=== PATIENT | male | born 1990 | race Caucasian/White ===

== ENCOUNTER 2019-09-17 13:59 | Emergency (ER) | payer SELFPAY ==
[2019-09-17] MEDS ORDERED: Haloperidol Lactate 5 MG/ML SDV ONE (14:23)
[2019-09-17] MEDS ORDERED: LORazepam 2 MG/ML SDV ONE (14:24)
[2019-09-17] MEDS ORDERED: LORazepam 2 MG/ML SDV IVPUSH ONE (14:27)
[2019-09-17] MEDS ORDERED: Haloperidol Lactate 5 MG/ML SDV IM ONE ×2 (14:27→15:03)
[2019-09-17] MEDS ORDERED: diphenhydrAMINE 50 MG/ML SDV ONE (14:30)
--- NOTE | 2019-09-17 14:35 | EDM.PDOC ---
ED HPI GENERAL MEDICAL PROBLEM - General Chief Complaint: Drug or Alcohol Abuse Stated Complaint: MEDICAL CLEARANCE Time Seen by Provider: 09/17/19 14:06 Source of Information: Reports: Patient, Police History Limitations: Reports: No Limitations, Intoxication - History of Present Illness INITIAL COMMENTS - FREE TEXT/NARRATIVE: HISTORY AND PHYSICAL: History of present illness: Patient is a 29-year-old male who presents to the ED today with law enforcement for concern of suicidal ideation with plan and intoxication. While enforcement states that they were called by patient's mother was concerned for his safety. Mother told law enforcement that patient had sent a picture of a knife stating he was going to kill himself. Law enforcement state that upon arrival to the scene, patient had been drinking heavily and also expressed wanting to kill himself. In the ED today, patient does appear intoxicated and patient does state he wants to kill himself but is not coherently able to state a plan. Patient does allude to prior attempts in the past but does not clearly state what he had done in the past or how remotely. Patient denies any other symptoms or concerns. Review of systems: As per history of present illness and below otherwise all systems reviewed and negative. Past medical history: As per history of present illness and as reviewed below otherwise noncontributory. Surgical history: As per history of present illness and as reviewed below otherwise noncontributory. Social history: See social history for further information Family history: As per history of present illness and as reviewed below otherwise noncontributory. Physical exam: General: Patient is alert, oriented, and in no acute distress. Patient sitting comfortably on exam table. HEENT: Atraumatic, normocephalic, pupils equal and reactive bilaterally, negative for conjunctival pallor or scleral icterus, mucous membranes moist, TMs normal bilaterally, throat clear, neck supple, nontender, trachea midline. No drooling or trismus noted. No meningeal signs. No hot potato voice noted. Lungs: Clear to auscultation, breath sounds equal bilaterally, chest nontender. Heart: S1S2, regular rate and rhythm without overt murmur Abdomen: Soft, nondistended, nontender. Negative for masses or hepatosplenomegaly. Negative for costovertebral tenderness. Pelvis: Stable nontender. Genitourinary: Deferred. Rectal: Deferred. Skin: Intact, warm, dry. No lesions or rashes noted. Extremities: Atraumatic, negative for cords or calf pain. Neurovascular unremarkable. Neuro: Awake, alert, oriented. Cranial nerves II through XII unremarkable. Cerebellum unremarkable. Motor and sensory unremarkable throughout. Exam nonfocal. Notes: Dr. Jones directly involved in patient care Patient is aggressive and combative in the ED and does states that he wants to kill himself. He does settle down with therapeutics given today. Dr. Hudson, [facility] in [place], consulted on patient and excepting of transfer via EMS with police escort. Diagnostics: CBC, CMP, UA, EKG, TSH, magnesium, urine drug screen, salicylate, acetaminophen and ethanol Therapeutics: D51/2NS, Haldol, Ativan, Benadryl Impression: Suicidal ideation Alcohol Intoxication Hypoglycemia Plan: 1. Transfer to [facility] in [place] to Dr. Hudson. EMS with police escort. Definitive disposition and diagnosis as appropriate pending reevaluation and review of above. - Related Data Allergies Allergy/AdvReac Type Severity Reaction Status Date / Time amoxicillin Allergy Other Verified 09/17/19 14:12 Penicillins Allergy Other Verified 09/17/19 14:12 Home Meds: Home Meds . [No Known Home Meds] 09/17/19 [History] Past Medical History Psychiatric History: Reports: Bipolar Social & Family History - Family History Family Medical History: Noncontributory - Tobacco Use Smoking Status *Q: Current Every Day Smoker Years of Tobacco use: 10 Packs/Tins Daily: 1 - Recreational Drug Use Recreational Drug Use: No ED ROS GENERAL - Review of Systems Review Of Systems: ROS reveals no pertinent complaints other than HPI. ED EXAM, GENERAL - Physical Exam Exam: See Below (See dictation) Course - Vital Signs Last Recorded V/S: Last Vital Signs Temp 97.1 F 09/17/19 14:10 Pulse 74 09/17/19 15:12 Resp 18 09/17/19 15:12 BP 129/85 09/17/19 15:12 Pulse Ox 97 09/17/19 15:12 - Orders/Labs/Meds Orders: Active Orders 24 hr Category Date Time Status Blood Glucose Check, Bedside [RC] ONETIME Care 09/17/19 14:06 Active EKG Documentation Completion [RC] STAT Care 09/17/19 14:17 Active Dextrose 5%-0.45% NaCl [Dextrose 5%-1/2 NS] 1,000 ml Med 09/17/19 15:15 Active IV ASDIRECTED Medication Orders Dextrose/Sodium Chloride (Dextrose 5%-1/2 Ns) 1,000 mls @ 125 mls/hr IV ASDIRECTED WILLIAM Last Admin: 09/17/19 15:21 Dose: 125 mls/hr Labs: Laboratory Tests 09/17/19 09/17/19 09/17/19 Range/Units 14:35 14:35 14:45 WBC 9.26 (4.0-11.0) K/uL RBC 5.10 (4.50-5.90) M/uL Hgb 16.0 (13.0-17.0) g/dL Hct 46.1 (38.0-50.0) % MCV 90.4 (80.0-98.0) fL MCH 31.4 (27.0-32.0) pg MCHC 34.7 (31.0-37.0) g/dL RDW Std Deviation 44.4 (28.0-62.0) fl RDW Coeff of Valeria 14 (11.0-15.0) % Plt Count 208 (150-400) K/uL MPV 9.90 (7.40-12.00) fL Neut % (Auto) 63.6 (48.0-80.0) % Lymph % (Auto) 24.8 (16.0-40.0) % [place] % (Auto) 11.0 (0.0-15.0) % Eos % (Auto) 0.4 (0.0-7.0) % Baso % (Auto) 0.2 (0.0-1.5) % Neut # (Auto) 5.9 H (1.4-5.7) K/uL Lymph # (Auto) 2.3 (0.6-2.4) K/uL [place] # (Auto) 1.0 H (0.0-0.8) K/uL Eos # (Auto) 0.0 (0.0-0.7) K/uL Baso # (Auto) 0.0 (0.0-0.1) K/uL Nucleated RBC % 0.0 /100WBC Nucleated RBCs # 0 K/uL Sodium (136-148) mmol/L Potassium (3.5-5.1) mmol/L Chloride (98-107) mmol/L Carbon Dioxide (21.0-32.0) mmol/L BUN (7.0-18.0) mg/dL Creatinine (0.8-1.3) mg/dL Est Cr Clr Drug Dosing mL/min Estimated GFR (MDRD) ml/min Glucose (74-106) mg/dL POC Glucose (60-110) mg/dL Calcium (8.5-10.1) mg/dL Magnesium (1.8-2.4) mg/dL Total Bilirubin (0.2-1.0) mg/dL AST (15-37) IU/L ALT (14-63) IU/L Alkaline Phosphatase (46-116) U/L Total Protein (6.4-8.2) g/dL Albumin (3.4-5.0) g/dL Globulin (2.6-4.0) g/dL Albumin/Globulin Ratio (0.9-1.6) TSH 3rd Generation (0.36-3.74) uIU/mL Urine Color YELLOW Urine Appearance CLEAR Urine pH 6.0 (5.0-8.0) Ur Specific [place] <= 1.005 (1.001-1.035) Urine Protein NEGATIVE (NEGATIVE) mg/dL Urine Glucose (UA) NEGATIVE (NEGATIVE) mg/dL Urine Ketones NEGATIVE (NEGATIVE) mg/dL Urine Occult Blood NEGATIVE (NEGATIVE) Urine Nitrite NEGATIVE (NEGATIVE) Urine Bilirubin NEGATIVE (NEGATIVE) Urine Urobilinogen 0.2 (<2.0) EU/dL Ur Leukocyte Esterase NEGATIVE (NEGATIVE) Salicylates (0-20) mg/dL Urine Opiates Screen NEGATIVE (NEGATIVE) Ur Oxycodone Screen NEGATIVE (NEGATIVE) Urine Methadone Screen NEGATIVE (NEGATIVE) Acetaminophen ug/mL Ur Barbiturates Screen NEGATIVE (NEGATIVE) Ur Phencyclidine Scrn NEGATIVE (NEGATIVE) Ur Amphetamine Screen NEGATIVE (NEGATIVE) U Methamphetamines Scrn NEGATIVE (NEGATIVE) U Benzodiazepines Scrn NEGATIVE (NEGATIVE) U Cocaine Metab Screen NEGATIVE (NEGATIVE) U Marijuana (THC) Screen NEGATIVE (NEGATIVE) Ethyl Alcohol mg/dL 09/17/19 09/17/19 Range/Units 14:45 15:51 WBC (4.0-11.0) K/uL RBC (4.50-5.90) M/uL Hgb (13.0-17.0) g/dL Hct (38.0-50.0) % MCV (80.0-98.0) fL MCH (27.0-32.0) pg MCHC (31.0-37.0) g/dL RDW Std Deviation (28.0-62.0) fl RDW Coeff of Valeria (11.0-15.0) % Plt Count (150-400) K/uL MPV (7.40-12.00) fL Neut % (Auto) (48.0-80.0) % Lymph % (Auto) (16.0-40.0) % [place] % (Auto) (0.0-15.0) % Eos % (Auto) (0.0-7.0) % Baso % (Auto) (0.0-1.5) % Neut # (Auto) (1.4-5.7) K/uL Lymph # (Auto) (0.6-2.4) K/uL [place] # (Auto) (0.0-0.8) K/uL Eos # (Auto) (0.0-0.7) K/uL Baso # (Auto) (0.0-0.1) K/uL Nucleated RBC % /100WBC Nucleated RBCs # K/uL Sodium 143 (136-148) mmol/L Potassium 3.5 (3.5-5.1) mmol/L Chloride 105 (98-107) mmol/L Carbon Dioxide 21.7 (21.0-32.0) mmol/L BUN 5 L (7.0-18.0) mg/dL Creatinine 0.9 (0.8-1.3) mg/dL Est Cr Clr Drug Dosing 125.05 mL/min Estimated GFR (MDRD) > 60.0 ml/min Glucose 71 L (74-106) mg/dL POC Glucose 79 (60-110) mg/dL Calcium 8.7 (8.5-10.1) mg/dL Magnesium 2.5 H (1.8-2.4) mg/dL Total Bilirubin 0.4 (0.2-1.0) mg/dL AST 20 (15-37) IU/L ALT 24 (14-63) IU/L Alkaline Phosphatase 61 (46-116) U/L Total Protein 8.1 (6.4-8.2) g/dL Albumin 4.8 (3.4-5.0) g/dL Globulin 3.3 (2.6-4.0) g/dL Albumin/Globulin Ratio 1.5 (0.9-1.6) TSH 3rd Generation 0.25 L (0.36-3.74) uIU/mL Urine Color Urine Appearance Urine pH (5.0-8.0) Ur Specific [place] (1.001-1.035) Urine Protein (NEGATIVE) mg/dL Urine Glucose (UA) (NEGATIVE) mg/dL Urine Ketones (NEGATIVE) mg/dL Urine Occult Blood (NEGATIVE) Urine Nitrite (NEGATIVE) Urine Bilirubin (NEGATIVE) Urine Urobilinogen (<2.0) EU/dL Ur Leukocyte Esterase (NEGATIVE) Salicylates 2.8 (0-20) mg/dL Urine Opiates Screen (NEGATIVE) Ur Oxycodone Screen (NEGATIVE) Urine Methadone Screen (NEGATIVE) Acetaminophen <2.0 ug/mL Ur Barbiturates Screen (NEGATIVE) Ur Phencyclidine Scrn (NEGATIVE) Ur Amphetamine Screen (NEGATIVE) U Methamphetamines Scrn (NEGATIVE) U Benzodiazepines Scrn (NEGATIVE) U Cocaine Metab Screen (NEGATIVE) U Marijuana (THC) Screen (NEGATIVE) Ethyl Alcohol 338 mg/dL Meds: Medications Generic Name Dose Route Start Last Admin Trade Name Freq PRN Reason Stop Dose Admin Dextrose/Sodium Chloride 1,000 mls @ 125 mls/hr 09/17/19 15:15 09/17/19 15:21 Dextrose 5%-1/2 Ns IV 125 mls/hr ASDIRECTED WILLIAM Administration Discontinued Medications Generic Name Dose Route Start Last Admin Trade Name Freq PRN Reason Stop Dose Admin Diphenhydramine HCl Confirm 09/17/19 14:30 09/17/19 14:49 Benadryl Administered 09/17/19 14:31 Not Given Dose 50 mg .ROUTE .STK-MED ONE Diphenhydramine HCl 50 mg 09/17/19 14:47 09/17/19 14:50 Benadryl IVPUSH 09/17/19 14:48 50 mg ONETIME ONE Administration Haloperidol Lactate Confirm 09/17/19 14:23 09/17/19 14:49 Haldol Administered 09/17/19 14:24 Not Given Dose 10 mg .ROUTE .STK-MED ONE Haloperidol Lactate 10 mg 09/17/19 14:27 09/17/19 14:50 Haldol IM 09/17/19 14:28 10 mg ONETIME ONE Administration Haloperidol Lactate Confirm 09/17/19 15:03 09/17/19 15:20 Haldol Administered 09/17/19 15:04 5 mg Dose Administration 5 mg .ROUTE .STK-MED ONE Lorazepam Confirm 09/17/19 14:24 09/17/19 14:49 Ativan Administered 09/17/19 14:25 Not Given Dose 2 mg .ROUTE .STK-MED ONE Lorazepam 1 mg 09/17/19 14:27 09/17/19 14:50 Ativan IVPUSH 09/17/19 14:28 1 mg ONETIME ONE Administration Departure - Departure Time of Disposition: 15:51 Disposition: DC/Tfer to Acute Hospital 02 Clinical Impression: Suicidal ideation, Hypoglycemia Alcohol intoxication Qualifiers: Complication of substance-induced condition: with unspecified complication Qualified Code(s): F10.929 - Alcohol use, unspecified with intoxication, unspecified - Discharge Information Referrals: PCP,Unknown [Primary Care Provider] - Forms: ED Department Discharge - My Orders Last 24 Hours: My Active Orders 09/17/19 14:06 Blood Glucose Check, Bedside [RC] ONETIME 09/17/19 14:17 EKG Documentation Completion [RC] STAT 09/17/19 15:15 Dextrose 5%-0.45% NaCl [Dextrose 5%-1/2 NS] 1,000 ml IV ASDIRECTED - Assessment/Plan Last 24 Hours: My Active Orders 09/17/19 14:06 Blood Glucose Check, Bedside [RC] ONETIME 09/17/19 14:17 EKG Documentation Completion [RC] STAT 09/17/19 15:15 Dextrose 5%-0.45% NaCl [Dextrose 5%-1/2 NS] 1,000 ml IV ASDIRECTED
[2019-09-17] MEDS ORDERED: diphenhydrAMINE 50 MG/ML SDV IVPUSH ONE (14:47)
[2019-09-17 15:15] LABS: ACETAMINOPHEN <2.0 ug/mL
[2019-09-17] MEDS ORDERED: Dextrose 5%-0.45% NaCl 1,000 ML IV SCH (15:15)
[2019-09-17] MEDS: Haloperidol Lactate 5 MG/ML SDV ONE (15:20)
[2019-09-17 15:25] LABS: BLOOD UREA NITROGEN,BUN 5 mg/dL (7.0-18.0); CARBON DIOXIDE,CO2 21.7 mmol/L (21.0-32.0); CHLORIDE,CL 105 mmol/L (98-107); GLUCOSE RANDOM 71 mg/dL (74-106); POTASSIUM,K 3.5 mmol/L (3.5-5.1); SODIUM,NA 143 mmol/L (136-148)
[2019-09-18] MEDS: Haloperidol Lactate 5 MG/ML SDV ONE (09:13)
== END 2019-09-17 16:27 ==
LOC: MW.ED 13:59
DX: F10.929 Alcohol use, unspecified with intoxication, unspecified (principal); R45.851 Suicidal ideations; E16.2 Hypoglycemia, unspecified; F17.210 Nicotine dependence, cigarettes, uncomplicated; Y90.8 Blood alcohol level of 240 mg/100 ml or more; Z88.0 Allergy status to penicillin
CPT/HCPCS: 36415; 80053; 80305; 80320; 80329; 81003; 82962; 83735; 84443; 85025; 93005; 96365; 96375; 96376; 99285; J1200; J1630; J2060; J7042; G0480

== ENCOUNTER 2019-10-07 15:44 | Observation (INO) | payer OTHER ==
[2019-10-07] MEDS ORDERED: Sodium Chloride 0.9% 2.5 ML Syringe FLUSH PRN (15:47)
[2019-10-07] MEDS ORDERED: Sodium Chloride 0.9% 10 ML Syringe FLUSH PRN (15:47)
[2019-10-07] MEDS ORDERED: Diphtheria,Pertussis(Acell),Tetanus Vaccine 0.5 ML Syringe IM ONE (15:47)
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
[2019-10-07] MEDS ORDERED: Ondansetron 4 MG/2 ML SDV IVPUSH ONE (15:57)
[2019-10-07] MEDS ORDERED: Iopamidol 755 MG/ML 500 ML Multipack Bottle IVPUSH STA (16:19)
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
[2019-10-07 16:59] LABS: BLOOD UREA NITROGEN,BUN 9 mg/dL (7.0-18.0); CARBON DIOXIDE,CO2 24.2 mmol/L (21.0-32.0); CHLORIDE,CL 105 mmol/L (98-107); GLUCOSE RANDOM 101 mg/dL (74-106); POTASSIUM,K 4.5 mmol/L (3.5-5.1); SODIUM,NA 140 mmol/L (136-148)
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
[2019-10-07] MEDS ORDERED: Acetaminophen 500 MG Tab PO ONE (17:51)
[2019-10-07] MEDS ORDERED: Acetaminophen/HYDROcodone 325-5 MG Tab PO PRN (17:57)
[2019-10-07] MEDS ORDERED: Ondansetron 4 MG/2 ML SDV IVPUSH PRN (17:57)
[2019-10-07] MEDS ORDERED: Lactated Ringers 1,000 ML IV SCH (18:00)
[2019-10-07] MEDS ORDERED: Cyclobenzaprine 10 MG Tab PO SCH (22:00)
== END 2019-10-07 18:25 | disposition left against medical advice (07) ==
LOC: MW.ED 15:44 → MW.MS 16:40
PROVIDERS: ADMIT Surgery; ATTEND Surgery
DX: F10.129 Alcohol abuse with intoxication, unspecified (principal); J93.9 Pneumothorax, unspecified; S22.43XA Multiple fractures of ribs, bilateral, initial encounter for closed fracture; S01.81XA Laceration without foreign body of other part of head, initial encounter; V89.2XXA Person injured in unspecified motor-vehicle accident, traffic, initial encounter; Z88.0 Allergy status to penicillin
CPT/HCPCS: 12011; 36415; 70450; 71260; 72125; 74177; 80053; 80305; 80320; 81001; 85025; 85610; 90471; 90715; 96374; 99285; J2001; J2405; Q9967; 99283; G0480